=== PATIENT | female | born 1960 | race Caucasian/White ===

== ENCOUNTER → 2018-03-24 13:21 | Outpatient (CLI) | payer BC | END | disposition home or self-care (01) | LOC: D.RAD 13:21 | DX: S43.432A Superior glenoid labrum lesion of left shoulder, initial encounter (principal); X58.XXXA Exposure to other specified factors, initial encounter ==

== ENCOUNTER → 2020-03-12 14:55 | Outpatient (CLI) | payer OTHER | END | disposition home or self-care (01) | LOC: D.MRI 14:55 | PROVIDERS: ATTEND Orthopaedic Surgery | DX: M84.374A Stress fracture, right foot, initial encounter for fracture (principal) ==